=== PATIENT | female | born 1965 | race Caucasian/White ===

== ENCOUNTER 2017-07-12 21:14 | Emergency (ER) | payer OTHER ==
[2017-07-12 21:27] VITALS: BP 184/91
--- NOTE | 2017-07-12 21:46 | EDM.PDOC ---
ED HPI GENERAL MEDICAL PROBLEM - General Chief Complaint: Skin Complaint Stated Complaint: BOIL ON LOWER BACK Time Seen by Provider: 07/12/17 21:25 Source of Information: Reports: Patient History Limitations: Reports: No Limitations - History of Present Illness INITIAL COMMENTS - FREE TEXT/NARRATIVE: The patient presents with a possible bite or abscess to the right flank. She noticed this 2 days ago. She has no fever or chills. She has no trauma to that area. Onset: Gradual Duration: Day(s): (2) Location: Reports: Back (Right flank) Quality: Reports: Sharp Severity: Moderate Improves with: Reports: None Worsens with: Reports: None Associated Symptoms: Reports: No Other Symptoms Treatments OPENER: Reports: Acetaminophen Right Flank Pain Score (Numeric/FACES): 6 - Related Data Allergies Allergy/AdvReac Type Severity Reaction Status Date / Time ampicillin Allergy Rash Verified 07/12/17 21:27 Home Meds: Home Meds Aspirin [Halfprin] 81 mg PO DAILY 07/12/17 [History] Doxycycline [Vibramycin] 100 mg PO Q12HR #20 cap 07/12/17 [Rx] Esomeprazole Magnesium [Nexium] 20 mg PO DAILY 07/12/17 [History] Hydrocodone/Acetaminophen [Hydrocodon-Acetaminophen 5-325] 1 - 2 each PO Q6HR PRN #20 tablet 07/12/17 [Rx] Simvastatin [Zocor] 10 mg PO DAILY 07/12/17 [History] glipiZIDE/Metformin HCl [GlipiZIDE-Metformin 2.5-500 MG] 1 tab PO DAILY [History] Past Medical History Cardiovascular History: Reports: High Cholesterol, Hypertension Gastrointestinal History: Reports: GERD Endocrine/Metabolic History: Reports: Diabetes, Type II Social & Family History - Tobacco Use Smoking Status *Q: Never Smoker ED ROS GENERAL - Review of Systems Review Of Systems: See Below Constitutional: Reports: No Symptoms HEENT: Reports: No Symptoms Respiratory: Reports: No Symptoms Cardiovascular: Reports: No Symptoms Endocrine: Reports: No Symptoms GI/Abdominal: Reports: No Symptoms : Reports: No Symptoms Musculoskeletal: Reports: Back Pain (Bite or abscess) ED EXAM, SKIN/RASH Exam: See Below Exam Limited By: No Limitations General Appearance: Alert, No Apparent Distress Ears: Normal External Exam Nose: Normal Inspection Head: Atraumatic, Normocephalic Neck: Normal Inspection Respiratory/Chest: No Respiratory Distress Back Exam: Other (Erythema and pain to the right flank with warmth.) Course - Vital Signs Last Recorded V/S: Last Vital Signs Temp 98.5 F 07/12/17 21:25 Pulse 92 07/12/17 21:25 Resp 18 07/12/17 21:25 BP 184/91 H 07/12/17 21:25 Pulse Ox 100 07/12/17 21:25 - Re-Assessments/Exams Free Text/Narrative Re-Assessment/Exam: 07/12/17 21:43 I did an US and there is no abscess to cut open. She has cellulitis. I will get her on some doxycycline and something for pain. Departure - Departure Time of Disposition: 21:45 Disposition: Home, Self-Care 01 Condition: Good Clinical Impression: Cellulitis Qualifiers: Site of cellulitis: trunk Site of cellulitis of trunk: back Qualified Code(s): L03.312 - Cellulitis of back [any part except buttock] - Discharge Information Prescriptions: Hydrocodone/Acetaminophen [Hydrocodon-Acetaminophen 5-325] 1 - 2 each PO Q6HR PRN #20 tablet PRN Reason: Pain Doxycycline [Vibramycin] 100 mg PO Q12HR #20 cap Referrals: Anusha Gauthier NP [Primary Care Provider] - Yohan Oswald MD [Physician] - 1 Week Additional Instructions: Take doxycycline 2 times per day until gone. Take the hydrocodone every 6 hours as needed for pain. Put warm compresses on your back 3 times per day for 5 days. Follow up with Dr Oswald if not better by next week. Please return if you are worse.
== END 2017-07-12 21:55 | disposition home or self-care (01) ==
LOC: JD.ED 21:14
DX: L03.312 Cellulitis of back [any part except buttock and flank] (principal); I10 Essential (primary) hypertension; E78.00 Pure hypercholesterolemia, unspecified; E11.9 Type 2 diabetes mellitus without complications; K21.9 Gastro-esophageal reflux disease without esophagitis; Z79.84 Long term (current) use of oral hypoglycemic drugs; Z79.899 Other long term (current) drug therapy; Z79.82 Long term (current) use of aspirin; Z88.1 Allergy status to other antibiotic agents
CPT/HCPCS: 99283; 99284-25

== ENCOUNTER 2023-05-02 11:24 | Emergency (ER) | payer OTHER ==
[2023-05-02] MEDS ORDERED: Sodium Chloride 0.9% 10 ML Syringe FLUSH PRN (11:43)
[2023-05-02] MEDS ORDERED: Sodium Chloride 0.9% 1,000 ML IV STA (12:00)
[2023-05-02 12:54] LABS: A/G RATIO 0.7 (1-2); ALANINE AMINOTRANSFERASE,ALT 28 U/L (14-59); ALBUMIN 2.9 g/dl (3.4-5.0); ALKALINE PHOSPHATASE 76 U/L (46-116); ANION GAP 12.4 (5-15); ASPARTATE AMNIOTRANSFERASE,AST 17 U/L (15-37); BILIRUBIN TOTAL 0.3 mg/dL (0.2-1.0); BLOOD UREA NITROGEN,BUN 14 mg/dL (7-18); BUN/CREATININE RATIO 17.5 (14-18); C-REACTIVE PROTEIN 1.8 mg/dL (<1.0); CARBON DIOXIDE,CO2 25 mEq/L (21-32); CHLORIDE,CL 107 mEq/L (98-107); CREATININE 0.8 mg/dL (0.55-1.02); EST CRCL DRUG DOSING (CG) 59.89 mL/min; ESTIMATED GFR 85 mL/min (>60); GLUCOSE RANDOM 204 mg/dL (70-99); MAGNESIUM 1.3 mg/dL (1.8-2.4); POTASSIUM,K 4.4 mEq/L (3.5-5.1); PROTEIN TOTAL,TP 6.9 g/dl (6.4-8.2); SODIUM,NA 140 mEq/L (136-145); T4 FREE 1.93 ng/dL (0.76-1.46)
[2023-05-02 12:57] LABS: CORONAVIRUS COVID-19 NAA NEGATIVE (NEGATIVE); INFLUENZA A NAA NEGATIVE (NEGATIVE)
[2023-05-02 12:58] LABS: TROPONIN I HIGH SENSITIVITY 86 pg/mL (<=51)
[2023-05-02 13:07] LABS: BASOPHILS ABSOLUTE AUTO 0.02 K/mm3 (0.01-0.08); BASOPHILS PERCENT AUTO 0.3 % (0.1-1.2); EOSINOPHILS ABSOLUTE AUTO 0.29 K/mm3 (0.04-0.36); EOSINOPHILS PERCENT AUTO 4.2 (0.7-5.8); HEMATOCRIT 32.1 % (34.1-44.9); HEMOGLOBIN 10.3 gm/dl (11.2-15.7); IMMATURE GRAN ABSOLUTE AUTO 0.01 K/mm3 (0.00-0.10); IMMATURE GRAN PERCENT AUTO 0.1 % (<=1.0); LYMPHOCYTES ABSOLUTE AUTO 1.81 K/mm3 (1.18-3.74); LYMPHOCYTES PERCENT AUTO 26.1 % (19.3-51.7); MEAN CORPUSCULAR HEMOGLOBIN 26.1 pg (25.6-32.2); MEAN CORPUSCULAR HGB CONC 32.1 g/dl (32.2-35.5); MEAN CORPUSCULAR VOLUME 81.5 fl (79.4-94.8); MEAN PLATELET VOLUME 9.6 fl (9.4-12.3); MONOCYTES ABSOLUTE AUTO 0.44 K/mm3 (0.24-0.36); MONOCYTES PERCENT AUTO 6.3 % (4.7-12.5); NEUTROPHILS ABSOLUTE AUTO 4.37 K/mm3 (1.56-6.13); PLATELET COUNT,PLT 296 K/mm3 (182-369); RED BLOOD CELL COUNT 3.94 M/mm3 (3.98-5.22); WHITE BLOOD CELL COUNT,WBC 6.94 K/mm3 (3.98-10.04)
[2023-05-02 13:17] LABS: TSH < 0.007 uIU/mL (0.358-3.74)
[2023-05-02 14:36] LABS: APPEARANCE,URINE SLT CLOUDY (Clear); BILIRUBIN,URINE NEGATIVE (Negative); COLOR,URINE YELLOW (Yellow); GLUCOSE,URINE NEGATIVE (Negative); KETONES,URINE TRACE (Negative); LEUKOCYTE ESTERASE,URINE TRACE (Negative); NITRITE,URINE NEGATIVE (Negative); OCCULT BLOOD,URINE NEGATIVE (Negative); PROTEIN,URINE 1+ (Negative); UROBILINOGEN,URINE 0.2 (0.2-1.0)
[2023-05-02 14:52] VITALS: BP 175/81; PULSE 74
[2023-05-02 15:28] LABS: BACTERIA,URINE MODERATE /hpf (FEW); MUCUS,URINE MODERATE /hpf (FEW)
== END 2023-05-02 14:40 | disposition home or self-care (01) ==
LOC: JD.ED 11:24
DX: E83.42 Hypomagnesemia (principal); E05.90 Thyrotoxicosis, unspecified without thyrotoxic crisis or storm; E78.00 Pure hypercholesterolemia, unspecified; I10 Essential (primary) hypertension; K21.9 Gastro-esophageal reflux disease without esophagitis; E11.9 Type 2 diabetes mellitus without complications; Z88.0 Allergy status to penicillin; Z79.82 Long term (current) use of aspirin; Z79.899 Other long term (current) drug therapy; Z20.822 Contact with and (suspected) exposure to COVID-19
CPT/HCPCS: 0240U; 36415; 80053; 81001; 83520; 83735; 84439; 84443; 84481; 84484; 85025; 86140; 93005; 99285; J3490; J7030; 93010; 99284

== ENCOUNTER 2023-05-08 14:54 | Emergency (ER) | payer OTHER ==
[2023-05-08] MEDS ORDERED: LORazepam 1 MG Tab PO ONE (16:07)
[2023-05-08 16:26] LABS: BASOPHILS ABSOLUTE AUTO 0.02 K/mm3 (0.01-0.08); BASOPHILS PERCENT AUTO 0.2 % (0.1-1.2); EOSINOPHILS ABSOLUTE AUTO 0.29 K/mm3 (0.04-0.36); EOSINOPHILS PERCENT AUTO 3.3 (0.7-5.8); HEMATOCRIT 29.1 % (34.1-44.9); HEMOGLOBIN 9.4 gm/dl (11.2-15.7); IMMATURE GRAN ABSOLUTE AUTO 0.04 K/mm3 (0.00-0.10); IMMATURE GRAN PERCENT AUTO 0.5 % (<=1.0); LYMPHOCYTES ABSOLUTE AUTO 1.66 K/mm3 (1.18-3.74); MEAN CORPUSCULAR HEMOGLOBIN 26.2 pg (25.6-32.2); MEAN CORPUSCULAR HGB CONC 32.3 g/dl (32.2-35.5); MEAN CORPUSCULAR VOLUME 81.1 fl (79.4-94.8); MEAN PLATELET VOLUME 8.6 fl (9.4-12.3); MONOCYTES ABSOLUTE AUTO 0.57 K/mm3 (0.24-0.36); MONOCYTES PERCENT AUTO 6.5 % (4.7-12.5); NEUTROPHILS ABSOLUTE AUTO 6.16 K/mm3 (1.56-6.13); NEUTROPHILS PERCENT AUTO 70.5 % (34.0-71.1); PLATELET COUNT,PLT 342 K/mm3 (182-369); RED BLOOD CELL COUNT 3.59 M/mm3 (3.98-5.22); WHITE BLOOD CELL COUNT,WBC 8.74 K/mm3 (3.98-10.04)
[2023-05-08 16:48] LABS: A/G RATIO 0.7 (1-2); ALBUMIN 2.8 g/dl (3.4-5.0); ANION GAP 15.7 (5-15); BILIRUBIN TOTAL 0.3 mg/dL (0.2-1.0); BUN/CREATININE RATIO 8.8 (14-18); CALCIUM 8.8 mg/dL (8.5-10.1); CREATININE 0.8 mg/dL (0.55-1.02); EST CRCL DRUG DOSING (CG) 59.89 mL/min; MAGNESIUM 1.2 mg/dL (1.8-2.4); POTASSIUM,K 3.7 mEq/L (3.5-5.1)
[2023-05-08] MEDS ORDERED: Propranolol 80 MG Cap.ER PO ONE (17:28)
[2023-05-08] MEDS ORDERED: Propranolol 60 MG Cap.ER PO ONE (18:07)
[2023-05-08 19:28] VITALS: BP 183/71; PULSE 87
== END 2023-05-08 18:10 | disposition home or self-care (01) ==
LOC: JD.ED 14:54
DX: E83.42 Hypomagnesemia (principal); E05.90 Thyrotoxicosis, unspecified without thyrotoxic crisis or storm; I10 Essential (primary) hypertension; E11.9 Type 2 diabetes mellitus without complications; E78.00 Pure hypercholesterolemia, unspecified; Z79.82 Long term (current) use of aspirin; Z79.84 Long term (current) use of oral hypoglycemic drugs; Z79.899 Other long term (current) drug therapy; Z88.0 Allergy status to penicillin
CPT/HCPCS: 36415; 80053; 83735; 85025; 99284; A9270; 99283

== ENCOUNTER 2025-07-23 04:40 | Emergency (ER) | payer OTHER ==
[2025-07-23 05:50] LABS: BASOPHILS ABSOLUTE AUTO 0.1 K/mm3 (0.0-0.2); BASOPHILS PERCENT AUTO 1.0 % (0.0-1.0); EOSINOPHILS ABSOLUTE AUTO 0.3 K/mm3 (0.0-0.4); EOSINOPHILS PERCENT AUTO 3.5 % (0.0-6.0); IMMATURE GRAN ABSOLUTE AUTO 0.01 K/mm3 (0.00-0.05); IMMATURE GRAN PERCENT AUTO 0.1 % (0.0-0.4); LYMPHOCYTES ABSOLUTE AUTO 2.5 K/mm3 (1.0-4.8); LYMPHOCYTES PERCENT AUTO 34.2 % (24.0-44.0); MEAN PLATELET VOLUME 9.9 fl (9.4-12.3); MONOCYTES ABSOLUTE AUTO 0.5 K/mm3 (0.0-0.8); MONOCYTES PERCENT AUTO 6.5 % (0.0-8.0); NEUTROPHILS ABSOLUTE AUTO 4.0 K/mm3 (1.8-7.7); NEUTROPHILS PERCENT AUTO 54.7 % (41.0-71.0); NRBC ABSOLUTE 0.00 (0.00-0.02); NRBC PERCENT 0.0 % (0.0-0.2); PLATELET COUNT,PLT 322 K/mm3 (150-400); RED BLOOD CELL COUNT 4.83 M/mm3 (4.10-5.30); WHITE BLOOD CELL COUNT,WBC 7.34 K/mm3 (3.9-11.3)
[2025-07-23 06:14] LABS: A/G RATIO 0.9 (1-2); ALANINE AMINOTRANSFERASE,ALT 24.0 U/L (14-59); ASPARTATE AMNIOTRANSFERASE,AST 12.0 U/L (15-37); BILIRUBIN TOTAL 0.7 mg/dL (0.2-1.0); BLOOD UREA NITROGEN,BUN 11.0 mg/dL (7-18); CARBON DIOXIDE,CO2 28.0 mEq/L (21-32); CHLORIDE,CL 103.0 mEq/L (98-107); CREATININE 0.9 mg/dL (0.55-1.02); EST CRCL DRUG DOSING (CG) 51.92 mL/min; ESTIMATED GFR 73.0 mL/min (>60); GLUCOSE RANDOM 165.0 mg/dL (70-99); POTASSIUM,K 3.9 mEq/L (3.5-5.1); PROTEIN TOTAL,TP 7.6 g/dl (6.4-8.2); SODIUM,NA 140.0 mEq/L (136-145); TROPONIN I HIGH SENSITIVITY 6.0 pg/mL (<=51); TSH 2.017 uIU/mL (0.358-3.74)
[2025-07-23 06:48] VITALS: BP 129/62; PULSE 69
== END 2025-07-23 06:50 | disposition home or self-care (01) ==
LOC: JD.ED 04:40
DX: R00.2 Palpitations (principal); R20.2 Paresthesia of skin; E78.00 Pure hypercholesterolemia, unspecified; I10 Essential (primary) hypertension; K21.9 Gastro-esophageal reflux disease without esophagitis; E11.9 Type 2 diabetes mellitus without complications; Z88.0 Allergy status to penicillin; Z79.82 Long term (current) use of aspirin; Z79.899 Other long term (current) drug therapy; Z79.84 Long term (current) use of oral hypoglycemic drugs
CPT/HCPCS: 36415; 71045; 71045-26; 80053; 83735; 84443; 84484; 85025; 93005; 99285; A9270-GY